=== PATIENT | female | born 1965 | race Caucasian/White ===

== ENCOUNTER 2020-10-28 23:01 | Day surgery (SDC) | payer BC ==
[2020-10-28] MEDS ORDERED: Sugammadex Sodium 200 MG/2 ML VIAL ONE (23:58)
[2020-10-28] MEDS ORDERED: Desflurane 240 ML Bottle ONE (23:58)
[2020-10-29] MEDS ORDERED: fentaNYL 250 MCG/5 ML SDV ONE ×2 (00:01→01:04)
[2020-10-29] MEDS ORDERED: Propofol 200 MG/20 ML SDV ONE (00:01)
[2020-10-29] MEDS ORDERED: Midazolam 1 MG/ML 2 ML SDV ONE (00:01)
--- NOTE | 2020-10-29 00:03 | PCM.SN.2 ---
- Free Text/Narrative Note: pt seen, chart reviewed; h/p dictated; h/p and imaging cw acute appendicitis; proceed with timely surgery; rb dw pt re bleeding/more infection/damage to nearby organs, possible drain placement and postop course, pt concur and proceed w surgery; beatriz shoemaker at [facility] 3 hrs ago, would give a dose of zosyn postop; BTL, covid -ve and aysmptomatic; [id number]
[2020-10-29] MEDS ORDERED: Glycopyrrolate 0.2 MG/ML SDV ONE (00:08)
[2020-10-29] MEDS ORDERED: Ondansetron 4 MG/2 ML SDV ONE (00:08)
[2020-10-29] MEDS ORDERED: Rocuronium Bromide 50 MG/5 ML Syringe ONE ×2 (00:08→01:26)
[2020-10-29] MEDS ORDERED: Lidocaine 2% 5 ML SDV ONE (00:08)
[2020-10-29] MEDS ORDERED: Ketorolac 30 MG/ML SDV ONE (00:08)
[2020-10-29] MEDS ORDERED: Bupivacaine 25%/EPINEPHrine/PF 30 ML ONE (00:10)
[2020-10-29] MEDS ORDERED: Lactated Ringers 1,000 ML IV SCH ×2 (00:15→02:15)
[2020-10-29] MEDS ORDERED: Acetaminophen 1,000 MG in Premix Bag 1 BAG IV PRN (00:43)
[2020-10-29] MEDS ORDERED: fentaNYL 100 MCG/2 ML SDV IVPUSH PRN (00:43)
--- NOTE | 2020-10-29 00:44 | PCM.PREANE ---
Preanesthetic Assessment - Anesthesia/Transfusion/Family Hx Anesthesia History: Prior Anesthesia Without Reaction Family History of Anesthesia Reaction: No - Physical Assessment NPO Status Date: 10/28/20 NPO Status Time: 17:00 Vital Signs: Last Vital Signs Temp 36.9 C 10/28/20 23:07 Pulse 76 10/28/20 23:07 Resp 18 10/28/20 23:07 BP 143/62 H 10/28/20 23:07 Pulse Ox 95 10/28/20 23:07 Height: 1.8 m Weight: 104.326 kg ASA Class: 2E - Allergies Allergies/Adverse Reactions: Allergies Allergy/AdvReac Type Severity Reaction Status Date / Time eucalyptus Allergy Wheezing Verified 10/28/20 23:03 enviormental Allergy Wheezing Uncoded 10/28/20 23:03 - Acknowledgements Anesthesia Type Planned: General Anesthesia Pt an Appropriate Candidate for the Planned Anesthesia: Yes Alternatives and Risks of Anesthesia Discussed w Pt/Guardian: Yes Pt/Guardian Understands and Agrees with Anesthesia Plan: Yes PreAnesthesia Questionnaire Cardiovascular History: Reports: Hypertension Gastrointestinal History: Reports: Diverticulosis Other OB/BYN History: breast lumpectomy- benighn , tubal ligation Other Musculoskeletal History: chronic hip pain, chronic back pain, labral tear of L hip, osteoarthritis, tendinosis, remobal of spurs to R knee, degenerative koint disease Other Psychiatric History: HCC Endocrine/Metabolic History: Reports: Obesity/BMI 30+ - Infectious Disease History Infectious Disease History: Reports: Chicken Pox - SUBSTANCE USE Tobacco Use Within Last Twelve Months: Cigarettes Recreational Drug Use History: No - HOME MEDS Home Medications: Home Meds Acetaminophen/traMADol [Ultracet] 1 tab PO TID PRN 10/28/20 [History] Cholecalciferol (Vitamin D3) [Vitamin D3] 1 cap PO DAILY 10/28/20 [History] FLUoxetine HCl [Fluoxetine] 40 mg PO DAILY 10/28/20 [History] Irbesartan/Hydrochlorothiazide [Irbesartan-Hctz 150-12.5 mg Tb] 1 tab PO DAILY 10/28/20 [History] Magnesium 500 mg PO DAILY 10/28/20 [History] Vitamin B Complex 1 cap PO DAILY 10/28/20 [History] - CURRENT (IN HOUSE) MEDS Current Meds: Current Medications Lactated Ringer's (Ringers, Lactated) 1,000 mls @ 150 mls/hr IV ASDIRECTED ELLIOT Last Admin: 10/29/20 00:22 Dose: 150 mls/hr Documented by: Discontinued Medications Desflurane (Desflurane 240 Ml Bottle) Confirm Administered Dose 240 ml .ROUTE .STK-MED ONE Stop: 10/28/20 23:59 Fentanyl (Fentanyl 250 Mcg/5 Ml Sdv) Confirm Administered Dose 250 mcg .ROUTE .STK-MED ONE Stop: 10/29/20 00:02 Glycopyrrolate (Glycopyrrolate 0.2 Mg/Ml Sdv) Confirm Administered Dose 0.2 mg .ROUTE .STK-MED ONE Stop: 10/29/20 00:09 Bupivacaine HCl/Epinephrine Bitart (Sensorc Mpf 0.25%-Epi 1:[id number]) Confirm Administered Dose 30 mls @ as directed .ROUTE .STK-MED ONE Stop: 10/29/20 00:11 Ketorolac Tromethamine (Ketorolac 30 Mg/Ml Sdv) Confirm Administered Dose 30 mg .ROUTE .STK-MED ONE Stop: 10/29/20 00:09 Lidocaine (Lidocaine 2% 5 Ml Sdv) Confirm Administered Dose 5 ml .ROUTE .STK-MED ONE Stop: 10/29/20 00:09 Midazolam HCl (Midazolam 1 Mg/Ml 2 Ml Sdv) Confirm Administered Dose 2 mg .ROUTE .STK-MED ONE Stop: 10/29/20 00:02 Ondansetron HCl (Ondansetron 4 Mg/2 Ml Sdv) Confirm Administered Dose 4 mg .ROUTE .STK-MED ONE Stop: 10/29/20 00:09 Propofol (Propofol 200 Mg/20 Ml Sdv) Confirm Administered Dose 200 mg .ROUTE .STK-MED ONE Stop: 10/29/20 00:02 Rocuronium [place] (Rocuronium [place] 50 Mg/5 Ml Syringe) Confirm Administered Dose 50 mg .ROUTE .STK-MED ONE Stop: 10/29/20 00:09 Sugammadex Sodium (Sugammadex Sodium 200 Mg/2 Ml Vial) Confirm Administered Dose 200 mg .ROUTE .STK-MED ONE Stop: 10/28/20 23:59
[2020-10-29] MEDS ORDERED: Acetaminophen/oxyCODONE 325-5 MG Tab PO PRN (02:10)
[2020-10-29] MEDS ORDERED: Morphine 4 MG/ML Syringe IVPUSH PRN (02:10)
[2020-10-29] MEDS ORDERED: Ondansetron 4 MG/2 ML SDV IVPUSH PRN (02:15)
--- NOTE | 2020-10-29 02:21 | PCM.OPNOTE ---
- General Post-Op/Procedure Note Date of Surgery/Procedure: 10/29/20 Operative Procedure(s): appendectomy, laparoscopic Findings: appendix hyperemic and dusky at distal 1/2, dilated, severely adhered to TI and omentum suggested chronicity; gross perf not observed; see [id number] Pre Op Diagnosis: acute appendicitis Post-Op Diagnosis: Same Anesthesia Technique: General ET Tube Primary Surgeon: Earnest Medina Pathology: sent Complications: None Condition: Stable
[2020-10-29] MEDS: cefOXitin 1 GM in Premix Bag 1 BAG IV SCH ×2 (02:44→08:48)
--- NOTE | 2020-10-29 04:14 | HP ---
DATE OF : 1965 PRIMARY CARE PHYSICIAN: None PCP The patient is coming from [place], carry a diagnosis of acute appendicitis. HISTORY OF PRESENT ILLNESS: The patient is a 55 years old, obese, lady and smoker, complained of 36-hour history of gradual onset of right lower quadrant pain. The patient has chronic low back pain and also nausea and vomiting x1. CAT scan shows acute appendicitis. The patient then came to our emergency room for further evaluation. PAST MEDICAL HISTORY: Significant for no diabetes, NM, or CVA. The patient has hypertension and had a history of diverticulitis 4 years ago. PAST SURGICAL HISTORY: The patient has bilateral tubal ligation and some orthopedic procedure. ALLERGIES: Please refer to nursing notes for details. MEDICATION: Please refer to nursing notes for details. FAMILY HISTORY: Noncontributory, no history of colon cancer. PHYSICAL EXAMINATION: GENERAL: A very pleasant lady, very-very polite, and smiles to the doctor, in no acute distress. HEENT: Normocephalic and atraumatic. Sclerae are anicteric. LUNGS: Clear to auscultation. HEART: Regular rate and rhythm. ABDOMEN: Soft, nondistended. No pulsating tender midline abdominal structure. No Rovsing sign. Exquisite tenderness well localized at the McBurney point, and no rebound tenderness. LABORATORY DATA: White count is 18, creatinine is 0.79. COVID is negative. IMPRESSION: Imaging study and examination consistent with acute appendicitis. The patient would benefit from timely surgical intervention. Risks and benefits discussed with the patient including bleeding, more infection, and damage to nearby organs or possible drain placement and postop course. The patient concurred with surgery. The patient had Flagyl and Rocephin 3 hours ago prior to coming up to our emergency room. We will proceed with surgery, and postop, we will administer a dose of Zosyn. Plan discussed with the patient. The patient concurred to proceed with surgery. ALLY / ALESSANDRA /[id number] [place]
--- NOTE | 2020-10-29 04:46 | OR ---
SURGEON: Earnest Medina MD DATE OF PROCEDURE: 10/29/2020 PREOPERATIVE DIAGNOSIS: Acute appendicitis. POSTOPERATIVE DIAGNOSIS: Acute appendicitis. PROCEDURE PERFORMED: Laparoscopic appendectomy. PRIMARY SURGEON: Earnest Medina MD COMPLICATIONS: None. FINDING: Appendix is severely adherent to the terminal ileum and omentum and surrounding organ, suggests it is not 1 to 2 days' situation. The distal half is very dilated and dusky in appears. Gross perforation is not observed. DESCRIPTION OF PROCEDURE: The patient was taken to the operating room and placed in the supine position. Following induction of general endotracheal anesthesia, the patient's abdomen was prepped and draped in the sterile fashion. A time-out has been called. The patient was identified. The procedure was identified. The antibiotics were identified. The procedure then proceeded. The abdomen was prepped and draped in a standard fashion. After assessment of appropriate landmarks, a 12 millimeter trocar was inserted supraumbilically using Optiview and pneumoperitoneum was then achieved. This was followed with placement of 5 millimeter port in the right upper quadrant and another 5 millimeter port infraumbilically. The camera was inserted supraumbilical site and two laparoscopic [place] retractors were then inserted through the other two sites. Following the cecum, the appendix was located. The appendix was then lifted up, and using a GI stapler the appendix was amputated at the base. And using the GI stapler, the mesoappendix was then amputated. The appendix was retrieved by an endoscopic bag and sent for pathologist. This was then followed by re-insertion of the camera to examine the staple line, and hemostasis. The trocars were then removed. The umbilical site was closed with 2-0 Vicryl deep stitch and 4 -0 Vicryl and Dermabond; the other 2 5 mm port sites were closed with 4-0 Vicryl and Dermabond. The patient was then awakened, extubated, and transferred to the recovery room in hemodynamically stable condition. Prior to closing, sponge count and instrument count was correct. Dr. Medina was present throughout the whole procedure. As always, thank you for the kind referral. INTRAOPERATIVE FINDINGS: As dictated above. At the end of surgery, a piece of Surgicel was inserted for hemostasis and the skin of the trocar site approximated by use of skin becky, and followed with appropriate dressing. The patient returned to Recovery in hemodynamically stable condition. The patient tolerated the procedure well. There were no intraoperative complications. Dr. Medina was present throughout the procedure. ALLY APARICIO /[id number]
--- NOTE | 2020-10-29 06:54 | PCM.POSTAN ---
POST ANESTHESIA ASSESSMENT - MENTAL STATUS Mental Status: Alert - VITAL SIGNS Vital Signs: Last Vital Signs Temp 37.6 C 10/29/20 02:15 Pulse 68 10/29/20 03:04 Resp 14 10/29/20 03:04 BP 103/46 L 10/29/20 03:04 Pulse Ox 92 L 10/29/20 03:04 - RESPIRATORY Respiratory Status: Respiratory Rate WNL - CARDIOVASCULAR CV Status: Pulse Rate WNL - GASTROINTESTINAL GI Status: No Symptoms - POST OP HYDRATION Hydration Status: Adequate & Stable
--- NOTE | 2020-10-29 06:54 | PCM48HPAN ---
Post Anesthesia Note - EVALUATION WITHIN 48HRS OF ANESTHETIC Vital Signs in Normal Range: Yes Patient Participated in Evaluation: Yes Respiratory Function Stable: Yes Airway Patent: Yes Cardiovascular Function Stable: Yes Hydration Status Stable: Yes Pain Control Satisfactory: Yes Nausea and Vomiting Control Satisfactory: Yes Mental Status Recovered: Yes Vital Signs: Last Vital Signs Temp 37.6 C 10/29/20 02:15 Pulse 68 10/29/20 03:04 Resp 14 10/29/20 03:04 BP 103/46 L 10/29/20 03:04 Pulse Ox 92 L 10/29/20 03:04
[2020-10-29] MEDS ORDERED: VITAMIN B COMPLEX PO SCH (09:00)
[2020-10-29] MEDS ORDERED: FLUoxetine 20 MG Cap PO SCH (09:00)
[2020-10-29] MEDS ORDERED: Irbesartan 150 MG Tab PO SCH (09:00)
[2020-10-29] MEDS ORDERED: Cholecalciferol (Vitamin D3) 25 MCG Tab PO SCH (09:00)
[2020-10-29] MEDS ORDERED: Hydrochlorothiazide 12.5 MG Cap PO SCH (09:00)
[2020-10-29] MEDS ORDERED: Non-Formulary Medication 1 Each (Magnesium [Magnesium] 250 MG Tablet) PO SCH (09:00)
--- NOTE | 2020-10-29 09:05 | PCM.SN.2 ---
- Free Text/Narrative Note: Pt pain in good control, had 2 doses of IV mefoxin, void, tolerated full liquid; drsg minimum stains. would dc home on pain script; fu as scheduled 10 days; no lifting more than 10 lbs; full liquid X today, advance as tolerate tomorrow
== END 2020-10-29 10:05 | disposition home or self-care (01) ==
LOC: MW.ED 23:01 → MW.SDS 23:39 → MW.MS 23:39 → MW.SDS 10-29 10:05
PROVIDERS: ATTEND Surgery
DX: K35.80 Unspecified acute appendicitis (principal); I10 Essential (primary) hypertension; F17.210 Nicotine dependence, cigarettes, uncomplicated; E66.9 Obesity, unspecified; Z68.32 Body mass index [BMI] 32.0-32.9, adult; Z91.09 Other allergy status, other than to drugs and biological substances; Z98.890 Other specified postprocedural states
CPT/HCPCS: 44970; 88305; A9270; C1776; J0131; J0694; J1885; J2250; J2270; J2704; J3010; J3490; J7120; 00840; J2405